=== PATIENT | male | born 1955 | race African-American/Black ===

== ENCOUNTER 2020-10-09 06:47 | Emergency (ER) | payer BC ==
[~2020-10-09] VITALS: Ht 182.9 cm; Wt 102.0 kg
[2020-10-09 09:06] LABS: HEMATOCRIT. 40.6 % (42.0-52.0); HEMOGLOBIN. 13.7 g/dL (14.0-18.0); MEAN CORPUSCULAR HEMOGLOBIN 26.2 pg (28.0-32.0); MEAN CORPUSCULAR VOLUME 77.8 fL (80.0-94.0); MEAN PLATELET VOLUME 8.8 fl (7.4-10.4); PLATELET 211 x1000/uL (130-400); RED BLOOD CELL COUNT 5.22 mill/uL (4.7-6.1); RED CELL DISTRIBUTION WIDTH 15.3 % (11.6-14.6)
[2020-10-09 09:08] LABS: CHLORIDE 100 mEq/L (98-107)
[2020-10-09 09:11] LABS: PROTHROMBIN TIME 10.8 sec (9.6-11.0)
[2020-10-09 09:46] LABS: PLATELET ESTIMATE NORMAL
[2020-10-09 10:57] LABS: CLARITY URINE CLEAR (CLEAR); COLOR URINE YELLOW (YELLOW); KETONES URINE 3+ (NEGATIVE); LEUKOCYTE ESTERASE URINE TRACE (NEGATIVE); NITRITE URINE NEGATIVE (NEGATIVE); OCCULT BLOOD URINE 1+ (NEGATIVE); PH URINE 5.5 (4.5-8.0); PROTEIN URINE 2+ (NEGATIVE); SPECIFIC GRAVITY URINE 1.033 (1.005-1.030)
[2020-10-09] MEDS ORDERED: CEFTRIAXONE 1 G PREMIX 50 ML IV ONE (11:15)
[2020-10-09] MEDS ORDERED: SODIUM CHLORIDE 0.9% 1,000 ML IV ONE (11:15)
[2020-10-09] MEDS ORDERED: CEPH500T MT (11:37)
[2020-10-09] MEDS ORDERED: CEFTRIAXONE SODIUM 1 G/VIAL IM ONE (13:30)
[2020-10-09 13:41] VITALS: BP 150/86
== END 2020-10-09 13:58 | disposition home or self-care (01) ==
LOC: ER 06:47
DX: N39.0 Urinary tract infection, site not specified (principal); E11.9 Type 2 diabetes mellitus without complications; I10 Essential (primary) hypertension
CPT/HCPCS: 36415; 74176; 80053; 81003; 85025; 85610; 87077; 87086; 87186; 96372; 99284; J0696; J7030